=== PATIENT | female | born 1960 | race Caucasian/White ===

== ENCOUNTER 2016-11-29 10:03 | Inpatient (IN) | payer OTHER ==
[2016-11-28 14:57] VITALS: BMI 28.4
[2016-11-29] VITALS (20 sets, daily range): BP systolic 98–183; BP diastolic 58–95; PULSE 84–105; RESP 11–25; Ht 165.1 cm; Wt 91.9 kg
[~2016-11-29] VITALS: Ht 165.1 cm; Wt 91.9 kg
[~2016-11-29 10:03] MED LIST: GLYCOPYRROLATE 1 MG INJ ONE; NEOSTIGMINE 3 MG/3 ML SYRINGE ONE
[2016-11-29] MEDS ORDERED: GABA-526 PO (10:54)
[2016-11-29] MEDS ORDERED: GABA300C16 PO (10:54)
[2016-11-29] MEDS ORDERED: TRAM-40 PO (10:55)
[2016-11-29] MEDS ORDERED: LISI1TAB6 PO (10:56)
[2016-11-29] MEDS ORDERED: ESTR1TAB13 PO (10:56)
[2016-11-29] MEDS ORDERED: AMIT25TA9 PO (10:56)
[2016-11-29] MEDS ORDERED: ATOR10TA65 PO (10:57)
[2016-11-29] MEDS ORDERED: CYCL5TAB PO (10:58)
[2016-11-29] MEDS ORDERED: SPIR25TA PO (10:59)
[2016-11-29] MEDS ORDERED: OMEP40CA6 PO (10:59)
[2016-11-29] MEDS ORDERED: MIDAZOLAM 1 MG/ML 2 ML INJ ONE (12:22)
[2016-11-29] MEDS ORDERED: GELATIN SIZE 100 SPONGE ONE (12:30)
[2016-11-29] MEDS ORDERED: THROMBIN 5000 UNIT VIAL ONE (12:31)
[2016-11-29] MEDS ORDERED: LIDOCAINE 0.5%/EPI (MDV) 50 ML INJ ONE (12:31)
--- NOTE | 2016-11-29 12:58 | HPN ---
Date/Time of Note Date/Time of Note DATE: 11/29/16 TIME: 12:57 Interval H&P Admission Note Pt. seen H&P reviewed: No system changes SCOUT HEIN PA-C Nov 29, 2016 12:58
[2016-11-29] MEDS ORDERED: MEPERIDINE 25 MG INJ IV PRN (13:00)
[2016-11-29] MEDS ORDERED: LABETALOL HCL 20MG INJ IV PRN (13:00)
[2016-11-29] MEDS ORDERED: DIPHENHYDRAMINE 50 MG INJ IV PRN (13:00)
[2016-11-29] MEDS ORDERED: hydrALAzine 20 MG INJ IV PRN (13:00)
[2016-11-29] MEDS ORDERED: ONDANSETRON 4 MG INJ IV PRN (13:00)
--- NOTE | 2016-11-29 13:01 | HPN ---
Date/Time of Note Date/Time of Note DATE: 11/29/16 TIME: 13:01 Interval H&P Admission Note Pt. seen H&P reviewed: No system changes FLORA GASPRA MD Nov 29, 2016 13:01
[2016-11-29] MEDS ORDERED: PHENYLephrine (100 MCG/ML) 5ML SYG ONE (13:21)
[2016-11-29] MEDS ORDERED: DEXAMETHASONE 4 MG/ML 1 ML INJ ONE (13:29)
--- NOTE | 2016-11-29 13:39 | PREOPHP ---
DATE OF ADMISSION: 11/29/2016 HISTORY OF PRESENT ILLNESS: The patient is approximately 55-year-old female with a history of high blood pressure, CKD stage II, came into the office initially for evaluation of neck pain for approxi mately 1 year with numbness in her hands. She was diagnosed with cervical spondylosis with disk her niation C4-C5, C5-C6. Conservative management was initiated in the form of pain management, which t he patient has failed epidural injections. The patient has failed her condition is getting worse. The patient was having more pain and wanted something more definite to be done. PAST MEDICAL HISTORY: Hypertension, chronic kidney disease stage II. SURGICAL HISTORY: Right nephrectomy. MEDICATIONS: Please refer to medication reconciliation. ALLERGIES: CODEINE CAUSES HIVES. SOCIAL HISTORY: Does not drink regularly, but occasionally social drinking. Does not smoke. No dr bautista. FAMILY HISTORY: Unremarkable. REVIEW OF SYSTEMS: Additional 10-point review of systems conducted. Pertinent positive in HPI, oth erwise negative. PHYSICAL EXAMINATION: GENERAL: The patient in bed, awake. NEUROLOGIC: Alert, oriented, follows commands properly. EXTREMITIES: Upper extremity examination weakness in both shoulders, biceps, triceps, wrist extensor s and flexors. Muscle strength is 4/5 on both sides, appeared lower extremity examination is unrema rkable. She is able to move both lower extremities equally. IMAGING: MRI dated 10/30/2016 shows cervical spondylosis C3-C4, C4-C5, C5-C6 with disk herniation C 4-C5, C5-C6 with early cord compression. Recommendation at this point. The patient has failed cons ervative management, has failed outpatient therapy. Her condition is getting worse. The patient is developing weakness in upper extremities and numbness. Patient has evidence of radiculopathy, has evidence of myelopathy. Unfortunately, at this point, the only option left is a cervical diskectomy with partial vertebrectomy, C4, C5, C6 with interbody fusion and plating. The operation was discus sed with the patient in great detail and complications were discussed including bleeding, infection, permanent neurological damage and infarct. The patient has agreed. Authorization was obtained. T he patient will be admitted to the hospital after the procedure for further care and management. Dictated By: SCOUT ESPINOSA for FLORA SHAW/OWEN Conf#: [id number] [facility]#: [id number]
[2016-11-29] MEDS: CEFAZOLIN 1 GM/50 ML (PMX) 50 ML IVPB SCH ×2 (14:00→21:18)
[2016-11-29] MEDS ORDERED: POLYMYXIN/BACITRACIN 1L IRRIG ONE (14:05)
[2016-11-29] MEDS ORDERED: hydrALAzine 20 MG INJ ONE (14:24)
[2016-11-29] MEDS ORDERED: ROCURONIUM 50 MG INJ ONE (15:06)
[2016-11-29] MEDS ORDERED: LIDOCAINE 2% (SDV) 5 ML INJ ONE (15:06)
[2016-11-29] MEDS ORDERED: ONDANSETRON 4 MG INJ ONE (15:06)
[2016-11-29] MEDS ORDERED: PROPOFOL 20 ML ONE (15:06)
[2016-11-29] MEDS ORDERED: SUCCINYLCHOLINE CHLORIDE 100 MG/5 ML SYG IV ONE (15:06)
[2016-11-29] MEDS ORDERED: CEFAZOLIN 1 GM INJ ONE (15:14)
[2016-11-29] MEDS ORDERED: ALBUTEROL 0.083% (NEB) 2.5 MG/3 ML AMP ONE (15:32)
[2016-11-29] MEDS ORDERED: FUROSEMIDE 20 MG INJ ONE (15:44)
--- NOTE | 2016-11-29 15:49 | RADRPT ---
PROCEDURE: Intraoperative fluoroscopy. CLINICAL INDICATION: Intraoperative fluoroscopy during C4-5 and C5-6 fusion. TECHNIQUE: 7 spot intraoperative fluoroscopic images were provided. The images were reviewed on a high-resolution PACS workstation. COMPARISON: None available FINDINGS: Multiple spot intraoperative fluoroscopic views were provided during C4-5 and C5-6 fusion. The imag es demonstrate initial metallic probe at the C4-5 level, with subsequent placement of anterior verte bral body screws and anterior spinal fusion plate. The total fluoroscopy time was 17.1-seconds. IMPRESSION: 1. Multiple spot intraoperative fluoroscopic views during anterior cervical discectomy and fusion a t C4-5 and C5-6 were provided. 2. Please see operative report of the same day for further information. RPTAT: HGAS .Vlad Estrada MD, Date Time Electronically viewed and signed by .Vlad Estrada MD, on 11/29/2016 15:49 .S/
[2016-11-29] MEDS: FENTAnyl 50 MCG/ML VIAL IV PRN ×5 (16:18→17:09)
[2016-11-29] MEDS: DEXAMETHASONE 4 MG/ML 1 ML INJ IV SCH ×2 (19:56→23:38)
[2016-11-29] MEDS: ONDANSETRON 4 MG INJ IV PRN (19:56)
[2016-11-29] MEDS: DEXTROSE 5%-LR 1,000 ML IV SCH (19:56)
[2016-11-29] MEDS: HYDROmorphONE 1 MG/ML SYG IV PRN ×2 (19:57→23:38)
[2016-11-29] MEDS ORDERED: traMADol 50 MG TAB PO PRN (21:30)
[2016-11-29] MEDS: AMITRIPTYLINE 25 MG TAB PO SCH (22:30)
[2016-11-29] MEDS: ATORVASTATIN 10 MG TAB PO SCH (22:30)
[2016-11-29] MEDS: GABAPENTIN 300 MG CAP PO SCH (22:30)
[2016-11-30] MEDS: CYCLOBENZAPRINE 10 MG TAB PO PRN (00:44)
[2016-11-30] MEDS: ONDANSETRON 4 MG INJ IV PRN (03:13)
[2016-11-30] MEDS: HYDROmorphONE 2 MG/ML SYG IV PRN ×6 (03:14→19:49)
[2016-11-30 05:00] VITALS: BP 104/59; PULSE 107; RESP 18
[2016-11-30] MEDS: CEFAZOLIN 1 GM/50 ML (PMX) 50 ML IVPB SCH ×2 (06:02→14:02)
[2016-11-30] MEDS: DEXAMETHASONE 4 MG/ML 1 ML INJ IV SCH ×3 (06:02→21:50)
[2016-11-30] MEDS: PANTOPRAZOLE (EC) 40 MG TAB PO SCH (06:02)
[2016-11-30] MEDS: DEXTROSE 5%-LR 1,000 ML IV SCH ×2 (06:02→18:10)
[2016-11-30] MEDS: M PROGEST ACET XX SCH ×2 (08:00→16:00)
[2016-11-30] MEDS: ESTROGEN CON XX SCH ×2 (08:00→16:00)
[2016-11-30 08:36] VITALS: BP 99/57; RESP 18
[2016-11-30] MEDS: SPIRONOLACTONE 25 MG TAB PO SCH (09:00)
[2016-11-30] MEDS: LISINOPRIL 20 MG TAB PO SCH (09:00)
[2016-11-30] MEDS: HYDROCHLOROTHIAZIDE 12.5 MG CAP PO SCH (09:00)
[2016-11-30] MEDS: GABAPENTIN 300 MG CAP PO SCH ×3 (09:08→21:50)
--- NOTE | 2016-11-30 14:09 | HP ---
DATE OF ADMISSION: 11/29/2016 HISTORY OF PRESENT ILLNESS: The patient is a 55-year-old female with a past medical history positiv e for hypertension, chronic kidney disease stage II and fibromyalgia, obesity. The patient was diag nosed with cervical spondylosis with disk herniation at C4-C5 and C5-C6. The patient underwent cons ervative management for pain and epidural injection with no significant improvement. The patient's condition got worse and patient was evaluated by Dr. Macias. The patient underwent MRI which showed cervical spondylosis with disk herniation and early cord compression. The patient was brought to [facility] and underwent cervical diskectomy with partial vertebrectomy, C4, C5, C6 with interbody fusion and plating. Postoperatively, the patient experienced some significant pain and was admitted for further evaluation and care. The patient currently denies any fever, denies chills, denies manuel rrhea, nausea and vomiting. PAST MEDICAL HISTORY: Per HPI. PAST SURGICAL HISTORY: Status post right nephrectomy. FAMILY HISTORY: Positive for hypertension and cardiovascular disease in patient's father, diabetes mellitus type 2 in patient's mother, kidney cancer in patient's maternal aunt. SOCIAL HISTORY: Patient lives at home with her family, patient denies any tobacco use, denies any i llicit drug use. Patient drinks alcohol occasionally. ALLERGIES: PATIENT IS ALLERGIC TO CODEINE. HOME MEDICATIONS: 1. Amitriptyline. 2. Atorvastatin. 3. Cyclobenzaprine. 4. Prempro. 5. Gabapentin. 6. Lisinopril. 7. Hydrochlorothiazide. 8. Omeprazole. 9. Aldactone. 10. Ultram. REVIEW OF SYSTEMS: A 12-point review of systems is negative unless what mentioned in the HPI. PHYSICAL ASSESSMENT: GENERAL: Well-developed, obese female currently is awake, alert. VITAL SIGNS: Temperature is 98.0, pulse is 94, blood pressure is 110/58, respiratory rate 18, oxyge n saturation 97% on 2 liters nasal cannula. HEENT: Head is atraumatic, normocephalic. Pupils equal, round, reactive to light and accommodation . Oral mucosa is pink and moist. NECK: Status post-surgery with hard cervical collar on. Surgical incision with dry, clean and inta ct dressing. CHEST: Lungs clear bilaterally. There are no rhonchi, wheezes, rales noted. CARDIOVASCULAR: Normal S1, S2. No murmurs, gallops, clicks, rubs noted. ABDOMEN: Protuberant, soft, nondistended, nontender. Bowel sounds present. There is no guarding o r rebound tenderness. EXTREMITIES: Mild edema 1+. There is no clubbing, no cyanosis. Pulses equal bilaterally 2+. SKIN: There is no rash, petechiae noted. NEUROLOGIC: Patient is awake, alert and oriented x4. No focal deficits noted. Motor strength is 5 /5 in all extremities. LABORATORY DATA: On admission prior to surgery CBC, white blood cells 5.7, hemoglobin 13.2, hematoc rit 39.9, platelets 239. BMP: Sodium is 138, potassium 4.6, chloride 103, carbon dioxide 27, calci um is 10.2, glucose 94, BUN is 18, creatinine 0.8, PTT 30, INR is 1.0. PT is 10.5. ASSESSMENT AND PLAN: 1. Cervical spondylosis with disk herniation and early cord compression, status post diskectomy wit h partial vertebrectomy at C4, C5, C6 with interbody fusion and plating. 2. Hypertension. 3. Chronic kidney disease stage II. 4. Obesity. 5. Fibromyalgia. I am going to admit patient to medical/surgical floor. Continue tramadol for pain. Patient is cont inued on Decadron. Patient also status post postoperative antibiotics. Continue cervical collar, f ollow up surgical recommendation. Continue Zofran p.r.n. for nausea. Continue cefazolin. Will res ume patient's home medication of Neurontin, lisinopril and Aldactone. Continue Flexeril p.r.n. for muscle spasms, CBC and BMP tomorrow. Continue physical therapy. Further recommendations based on c linical course. Plan of care discussed with Dr. De Dios. Dictated By: BIGG B[employer]KE [employer] DIRECTOR for DARIUS DE DIOS MD SR/NTS Conf#: [id number] DID#: [id number]
--- NOTE | 2016-11-30 15:23 | CONS ---
Date/Time of Note Date/Time of Note DATE: 11/30/16 TIME: 15:21 Assessment/Plan Assessment/Plan Additional Assessment/Plan seen/examined awake/alert/follows/moves all/sensation intact cervical 4-5-6 partial vertebrectomy with fusion doing better start tapering decadron mri pending cont pt/ot cervical dressing dced due to too much dressing causing additional pressure on pts neck. Consultation Date/Type/Reason Admit Date/Time Nov 29, 2016 at 10:03 Initial Consult Date Exam/Review of Systems Vital Signs Vitals Vital Signs Date Time Temp Pulse Resp B/P Pulse Ox O2 Delivery O2 Flow Rate FiO2 11/30/16 08:36 98.6 108 18 99/57 94 11/30/16 05:00 Nasal Cannula 2.0 Intake and Output 11/29/16 11/29/16 11/30/16 15:00 23:00 07:00 Intake Total 1300 ml 2025 ml Output Total 2350 ml 1600 ml Balance -1050 ml 425 ml Medications Medications Current Medications Ondansetron HCl 4 mg 4 mg Q4H PRN IV NAUSEA AND/OR VOMITING Last administered on 11/30/16 03:13; Admin Dose 4 MG; Start 11/29/16 at 14:00 Dextrose/Lactated Ringer's (D5-Lr) 1,000 ml @ 75 mls/hr [id number] IV Last administered on 11/30/16 06:02; Admin Dose 75 MLS/HR; Start 11/29/16 at 15:30 Dexamethasone (Decadron) 4 mg Q6 IV Last administered on 11/30/16 12:26; Admin Dose 4 MG; Start 11/29/16 at 18:00 Amitriptyline HCl (Elavil) 25 mg QHS PO ; Start 11/29/16 at 22:30 Atorvastatin Calcium (Lipitor) 10 mg QHS PO ; Start 11/29/16 at 22:30 Cyclobenzaprine HCl (Flexeril) 10 mg QHS PRN PO MUSCLE SPASMS Last administered on 11/30/16 00:44; Admin Dose 10 MG; Start 11/29/16 at 21:30 Gabapentin (Neurontin) 300 mg PO Last administered on 11/30/16 14:02; Admin Dose 300 MG; Start 11/30/16 at 09:00 Gabapentin (Neurontin) 600 mg QHS PO ; Start 11/29/16 at 22:30 Spironolactone (Aldactone) 12.5 mg DAILY PO ; Start 11/30/16 at 09:00 Tramadol HCl (Ultram) 50 mg BID PRN PO PAIN; Start 11/29/16 at 21:30 Miscellaneous Information 1 each DAILY PO ; Start 11/30/16 at 09:00; Status UNV Lisinopril (Zestril) 20 mg DAILY PO ; Start 11/30/16 at 09:00 Pantoprazole (Protonix Tab) 40 mg DAILY@06 PO Last administered on 11/30/16 06 :02; Admin Dose 40 MG; Start 11/30/16 at 06:00 Hydrochlorothiazide (Hydrochlorothiazide) 12.5 mg DAILY PO ; Start 11/30/16 at 09:00 Hydromorphone HCl (Dilaudid) 1.5 mg Q3H PRN IV PAIN Last administered on 12:26; Admin Dose 1.5 MG; Start 11/30/16 at 03:10 Miscellaneous Information (*Order Clarification Bulletin) Estrogen,Con/ M- Progest Acet (Prempro ... Q8H XX Last administered on 11/30/16 08:00; Admin Dose 1 EA; Start 11/30/16 at 08:00 Simethicone (Mylicon) 80 mg TID PRN GTB DISTENSION/GAS/BLOATING Last administered on 11/30/16 13:26; Admin Dose 80 MG; Start 11/30/16 at 13:30 Diphenhydramine HCl (Benadryl) 50 mg Q6H PRN PO ITCHING; Start 11/30/16 at 13: 30 SCOUT HEIN PA-C Nov 30, 2016 15:23
[2016-11-30 20:01] VITALS: BP 116/62; PULSE 98; RESP 17
[2016-11-30] MEDS: AMITRIPTYLINE 25 MG TAB PO SCH (21:50)
[2016-11-30] MEDS: ATORVASTATIN 10 MG TAB PO SCH (21:50)
--- NOTE | 2016-11-30 22:02 | RADRPT ---
PROCEDURE: MRI Cervical Spine without contrast. CLINICAL INDICATION: 55-year-old female with cervical stenosis/cord compression. TECHNIQUE: An MRI of the cervical spine was performed without contrast utilizing multiple sequence s in the sagittal and axial planes. Images reviewed on a high-resolution PACS system.. COMPARISON: Intraoperative exam 11/29/2016 FINDINGS: There are postoperative changes from anterior cervical discectomy and fusion at C4-5 and C5-6 with p aired anterior vertebral body screws in the C4, C5 and C6 vertebral bodies and associated anterior s chadwick fusion plate. There are disc-spacers in place, which are not well evaluated due to susceptibi lity artifact. There are postoperative changes in the prevertebral soft tissues. 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 The intervertebral disc spaces are normal in signal and height. The craniocervical and cerv ical medullary junctions are unremarkable. The cervical cord is normal in caliber and signal intensi ty. The paravertebral soft tissues are unremarkable. Occiput-C2: The anatomic relationships are normal without canal stenosis. C2-3: The posterior margin of the disc, thecal sac and neural foramina are normal in appearance. C3-4: There is a 3.6 mm posterior disc protrusion with mild indentation on the ventral thecal sac. The thecal sac measures 7.7 mm midline AP diameter. There is mild bilateral facet spondylosis. The neural foramina are patent. C4-5: No residual disc material is seen. The thecal sac is patent measuring 9 mm midline AP diamete r. There is mild bilateral facet spondylosis. There is mild bilateral neural foraminal narrowing. C5-6: No residual disc material is seen. The thecal sac is patent measuring 8.[address]. There is mild bilateral facet hypertrophy and uncovertebral joint spondylosis. There is mild to moderate bilateral neural foraminal narrowing. C6-7: There is a 1-2 mm posterior disc/osteophyte complex. The thecal sac and neural foramina are p atent. There is mild bilateral facet spondylosis. C7-T1: The posterior margin of the disc, thecal sac and neural foramina are normal in appearance. IMPRESSION: 1. Postoperative changes from anterior cervical discectomy and fusion at C4-5 and C5-6 with intact surgical hardware. There is no significant residual stenosis of the cervical spinal canal. 2. The cervical cord is normal in signal and caliber. No definite residual myelopathic changes are seen. 3. 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 Number 4. 3.6 mm posterior central disc protrusion at C3-4 with mild to moderate narrowing of the cervical thecal sac. The neural foramina are patent. RPTAT: HGAS .Vlad Estrada MD, MD Date Time Electronically viewed and signed by .Vlad Estrada MD, on 11/30/2016 22:01 .S/
[2016-12-01] MEDS: HYDROmorphONE 2 MG/ML SYG IV PRN ×6 (00:42→23:36)
[2016-12-01] MEDS: DEXTROSE 5%-LR 1,000 ML IV SCH ×2 (00:42→14:17)
[2016-12-01 05:50] LABS: BASOPHILS % 0.3 % (0.0-2.0); HEMATOCRIT 34.2 % (37.0-47.0); HEMOGLOBIN 11.6 g/dl (12.0-16.0); LYMPHOCYTES # 0.6 10^3/ul (0.8-2.9); MEAN CORPUSCULAR HEMOGLOBIN 32.8 pg (29.0-33.0); MEAN CORPUSCULAR HGB CONC 33.8 g/dl (32.0-37.0); MEAN CORPUSCULAR VOLUME 97.1 fl (82.0-101.0); MEAN PLATELET VOLUME 8.9 fl (7.4-10.4); MONOCYTE # 0.6 10^3/ul (0.3-0.9); NEUTROPHIL # 13.9 10^3/ul (1.6-7.5); NEUTROPHILS % 91.7 % (39.0-77.0); PLATELET COUNT 211 10^3/UL (140-440); RED BLOOD COUNT 3.52 10^6/ul (4.20-5.40); RED CELL DISTRIBUTION WIDTH 14.9 % (11.5-14.5); UNCORRECTED WBC 15.2 10^3/ul (4.8-10.8); WHITE BLOOD COUNT 15.2 10^3/ul (4.8-10.8)
[2016-12-01] MEDS: PANTOPRAZOLE (EC) 40 MG TAB PO SCH (06:03)
[2016-12-01 06:21] LABS: CONDITION 1; LH ANALYZER COMMENTS 1
[2016-12-01 06:38] LABS: CREATININE 0.79 mg/dl (0.44-1.00)
[2016-12-01 06:39] LABS: CALCIUM 8.8 mg/dl (8.4-10.2)
[2016-12-01 07:45] VITALS: BP 115/58; RESP 16
[2016-12-01] MEDS: ESTROGEN CON XX SCH ×4 (08:00→23:38)
[2016-12-01] MEDS: M PROGEST ACET XX SCH ×4 (08:00→23:38)
[2016-12-01] MEDS: DEXAMETHASONE 4 MG/ML 1 ML INJ IV SCH ×2 (08:46→21:11)
[2016-12-01] MEDS: HYDROCHLOROTHIAZIDE 12.5 MG CAP PO SCH (09:00)
[2016-12-01] MEDS: LISINOPRIL 20 MG TAB PO SCH (09:00)
[2016-12-01] MEDS: SPIRONOLACTONE 25 MG TAB PO SCH (09:00)
[2016-12-01] MEDS: DIPHENHYDRAMINE 50 MG CAP PO PRN ×2 (09:14→21:58)
--- NOTE | 2016-12-01 10:08 | PN ---
Date/Time of Note Date/Time of Note DATE: 12/01/16 TIME: 10:07 Assessment/Plan VTE Prophylaxis VTE Prophylaxis Intervention: other Lines/Catheters IV Catheter Type (from Nrsg): Peripheral IV Assessment/Plan Chief Complaint/Hosp Course 1) spinal spondylosis - s/p surgery - monitor Problems: Subjective 24 Hr Interval Summary Free Text/Dictation Patient complain of neck pain and sore throat Exam/Review of Systems Vital Signs Vitals Vital Signs Date Time Temp Pulse Resp B/P Pulse Ox O2 Delivery O2 Flow Rate FiO2 12/01/16 07:45 97.8 104 16 115/58 96 11/30/16 20:01 Nasal Cannula 2.0 Intake and Output 11/30/16 11/30/16 12/01/16 15:00 23:00 07:00 Intake Total 50 ml 1785 ml 1130 ml Balance 50 ml 1785 ml 1130 ml Exam Constitutional: well developed Head: atraumatic, normocephalic Neck: supple Respiratory: diminished breath sounds Cardiovascular: regular rate and rhythm Gastrointestinal: non-tender, soft Results Result Diagram: 12/01/16 0420 12/01/16 0420 Results 24 hrs Laboratory Tests Test 12/01/16 04:20 Anion Gap 15 Basophils # 0.0 Basophils % 0.3 Blood Morphology Comment Blood Urea Nitrogen 17 Calcium Level 8.8 Carbon Dioxide Level 28 Chloride Level 103 Creatinine 0.79 Eosinophils # 0.0 Eosinophils % 0.0 Glucose Level 151 Hematocrit 34.2 L Hemoglobin 11.6 L Lymphocytes # 0.6 L Lymphocytes % 4.0 L Mean Corpuscular Hemoglobin 32.8 Mean Corpuscular Hemoglobin Concent 33.8 Mean Corpuscular Volume 97.1 Mean Platelet Volume 8.9 Monocytes # 0.6 Monocytes % 4.0 Neutrophils # 13.9 H Neutrophils % 91.7 H Nucleated Red Blood Cells # 0.0 Nucleated Red Blood Cells % 0.0 Platelet Count 211 Potassium Level 5.0 Red Blood Count 3.52 L Red Cell Distribution Width 14.9 H Sodium Level 141 White Blood Count 15.2 H Medications Medications Current Medications Ondansetron HCl 4 mg 4 mg Q4H PRN IV NAUSEA AND/OR VOMITING Last administered on 11/30/16t 03:13; Admin Dose 4 MG; Start 11/29/16 at 14:00 Dextrose/Lactated Ringer's (D5-Lr) 1,000 ml @ 75 mls/hr [id number] IV Last administered on 12/01/16 00:42; Admin Dose 75 MLS/HR; Start 11/29/16 at 15:30 Amitriptyline HCl (Elavil) 25 mg QHS PO Last administered on 11/30/16 21:50; Admin Dose 25 MG; Start 11/29/16 at 22:30 Atorvastatin Calcium (Lipitor) 10 mg QHS PO Last administered on 11/30/16 21: 50; Admin Dose 10 MG; Start 11/29/16 at 22:30 Cyclobenzaprine HCl (Flexeril) 10 mg QHS PRN PO MUSCLE SPASMS Last administered on 11/30/16 00:44; Admin Dose 10 MG; Start 11/29/16 at 21:30 Gabapentin (Neurontin) 300 mg 0914 PO Last administered on 11/30/16 14:02; Admin Dose 300 MG; Start 11/30/16 at 09:00 Gabapentin (Neurontin) 600 mg QHS PO Last administered on 11/30/16 21:50; Admin Dose 600 MG; Start 11/29/16 at 22:30 Spironolactone (Aldactone) 12.5 mg DAILY PO ; Start 11/30/16 at 09:00 Tramadol HCl (Ultram) 50 mg BID PRN PO PAIN Last administered on 12/01/16 09: 07; Admin Dose 50 MG; Start 11/29/16 at 21:30 Miscellaneous Information 1 each DAILY PO ; Start 11/30/16 at 09:00; Status UNV Lisinopril (Zestril) 20 mg DAILY PO ; Start 11/30/16 at 09:00 Pantoprazole (Protonix Tab) 40 mg DAILY@06 PO Last administered on 12/01/16 06 :03; Admin Dose 40 MG; Start 11/30/16 at 06:00 Hydrochlorothiazide (Hydrochlorothiazide) 12.5 mg DAILY PO ; Start 11/30/16 at 09:00 Hydromorphone HCl (Dilaudid) 1.5 mg Q3H PRN IV PAIN Last administered on 06:06; Admin Dose 1.5 MG; Start 11/30/16 at 03:10 Miscellaneous Information (*Order Clarification Bulletin) Estrogen,Con/ M- Progest Acet (Prempro ... Q8H XX Last administered on 11/30/16 08:00; Admin Dose 1 EA; Start 11/30/16 at 08:00 Simethicone (Mylicon) 80 mg TID PRN GTB DISTENSION/GAS/BLOATING Last administered on 11/30/16 13:26; Admin Dose 80 MG; Start 11/30/16 at 13:30 Diphenhydramine HCl (Benadryl) 50 mg Q6H PRN PO ITCHING Last administered on 09:14; Admin Dose 50 MG; Start 11/30/16 at 13:30 Dexamethasone (Decadron) 4 mg Q12 IV Last administered on 12/01/16 08:46; Admin Dose 4 MG; Start 11/30/16 at 21:00 SERGIO MARQUES Dec 01, 2016 10:08
[2016-12-01] MEDS: CEPASTAT LOZENGE MT PRN ×3 (10:22→21:12)
[2016-12-01] MEDS: GABAPENTIN 300 MG CAP PO SCH ×3 (10:22→21:12)
--- NOTE | 2016-12-01 11:07 | CONS ---
Date/Time of Note Date/Time of Note DATE: 12/01/16 TIME: 11:04 Assessment/Plan Assessment/Plan Additional Assessment/Plan seen/examined awake/alert/follows/moves all/sensation intact pt feeling better cont pt/ot mri looks good Consultation Date/Type/Reason Admit Date/Time Nov 29, 2016 at 10:03 Exam/Review of Systems Vital Signs Vitals Vital Signs Date Time Temp Pulse Resp B/P Pulse Ox O2 Delivery O2 Flow Rate FiO2 12/01/16 07:45 97.8 104 16 115/58 96 11/30/16 20:01 Nasal Cannula 2.0 Intake and Output 11/30/16 11/30/16 12/01/16 15:00 23:00 07:00 Intake Total 50 ml 1785 ml 1130 ml Balance 50 ml 1785 ml 1130 ml Results Result Diagram: 12/01/16 0420 12/01/16 0420 Results 24 hrs Laboratory Tests Test 12/01/16 04:20 Anion Gap 15 Basophils # 0.0 Basophils % 0.3 Blood Morphology Comment Blood Urea Nitrogen 17 Calcium Level 8.8 Carbon Dioxide Level 28 Chloride Level 103 Creatinine 0.79 Eosinophils # 0.0 Eosinophils % 0.0 Glucose Level 151 Hematocrit 34.2 L Hemoglobin 11.6 L Lymphocytes # 0.6 L Lymphocytes % 4.0 L Mean Corpuscular Hemoglobin 32.8 Mean Corpuscular Hemoglobin Concent 33.8 Mean Corpuscular Volume 97.1 Mean Platelet Volume 8.9 Monocytes # 0.6 Monocytes % 4.0 Neutrophils # 13.9 H Neutrophils % 91.7 H Nucleated Red Blood Cells # 0.0 Nucleated Red Blood Cells % 0.0 Platelet Count 211 Potassium Level 5.0 Red Blood Count 3.52 L Red Cell Distribution Width 14.9 H Sodium Level 141 White Blood Count 15.2 H Medications Medications Current Medications Ondansetron HCl 4 mg 4 mg Q4H PRN IV NAUSEA AND/OR VOMITING Last administered on 11/30/16 03:13; Admin Dose 4 MG; Start 11/29/16 at 14:00 Dextrose/Lactated Ringer's (D5-Lr) 1,000 ml @ 75 mls/hr [id number] IV Last administered on 12/01/16 00:42; Admin Dose 75 MLS/HR; Start 11/29/16 at 15:30 Amitriptyline HCl (Elavil) 25 mg QHS PO Last administered on 11/30/16 21:50; Admin Dose 25 MG; Start 11/29/16 at 22:30 Atorvastatin Calcium (Lipitor) 10 mg QHS PO Last administered on 11/30/16 21: 50; Admin Dose 10 MG; Start 11/29/16 at 22:30 Cyclobenzaprine HCl (Flexeril) 10 mg QHS PRN PO MUSCLE SPASMS Last administered on 11/30/16 00:44; Admin Dose 10 MG; Start 11/29/16 at 21:30 Gabapentin (Neurontin) 300 mg 09,14 PO Last administered on 12/01/16 10:22; Admin Dose 300 MG; Start 11/30/16 at 09:00 Gabapentin (Neurontin) 600 mg QHS PO Last administered on 11/30/16 21:50; Admin Dose 600 MG; Start 11/29/16 at 22:30 Spironolactone (Aldactone) 12.5 mg DAILY PO ; Start 11/30/16 at 09:00 Tramadol HCl (Ultram) 50 mg BID PRN PO PAIN Last administered on 12/01/16 09: 07; Admin Dose 50 MG; Start 11/29/16 at 21:30 Miscellaneous Information 1 each DAILY PO ; Start 11/30/16 at 09:00; Status UNV Lisinopril (Zestril) 20 mg DAILY PO ; Start 11/30/16 at 09:00 Pantoprazole (Protonix Tab) 40 mg DAILY@06 PO Last administered on 12/01/16 06 :03; Admin Dose 40 MG; Start 11/30/16 at 06:00 Hydrochlorothiazide (Hydrochlorothiazide) 12.5 mg DAILY PO ; Start 11/30/16 at 09:00 Hydromorphone HCl (Dilaudid) 1.5 mg Q3H PRN IV PAIN Last administered on 06:06; Admin Dose 1.5 MG; Start 11/30/16 at 03:10 Miscellaneous Information (*Order Clarification Bulletin) Estrogen,Con/ M- Progest Acet (Prempro ... Q8H XX Last administered on 11/30/16 08:00; Admin Dose 1 EA; Start 11/30/16 at 08:00 Simethicone (Mylicon) 80 mg TID PRN GTB DISTENSION/GAS/BLOATING Last administered on 11/30/16 13:26; Admin Dose 80 MG; Start 11/30/16 at 13:30 Diphenhydramine HCl (Benadryl) 50 mg Q6H PRN PO ITCHING Last administered on 09:14; Admin Dose 50 MG; Start 11/30/16 at 13:30 Dexamethasone (Decadron) 4 mg Q12 IV Last administered on 12/01/16 08:46; Admin Dose 4 MG; Start 11/30/16 at 21:00 Phenol (Cepastat Lozenge) 1 lozenge Q1H PRN MT sore throat Last administered on 12/01/16 10:22; Admin Dose 1 LOZENGE; Start 12/01/16 at 10:30 SCOUT HEIN PA-C Dec 01, 2016 11:07
[2016-12-01 12:00] VITALS: BP 103/56; PULSE 88; RESP 17
[2016-12-01] MEDS: ATORVASTATIN 10 MG TAB PO SCH (21:12)
[2016-12-01] MEDS: CYCLOBENZAPRINE 10 MG TAB PO PRN (21:12)
[2016-12-01] MEDS: AMITRIPTYLINE 25 MG TAB PO SCH (21:12)
[2016-12-01 21:45] VITALS: BP 126/67; RESP 20
[2016-12-02] MEDS: PANTOPRAZOLE (EC) 40 MG TAB PO SCH (06:25)
[2016-12-02] MEDS: HYDROmorphONE 2 MG/ML SYG IV PRN ×5 (06:29→22:36)
[2016-12-02] MEDS: DEXTROSE 5%-LR 1,000 ML IV SCH ×2 (07:18→23:30)
[2016-12-02] MEDS: ESTROGEN CON XX SCH ×3 (08:00→23:48)
[2016-12-02] MEDS: M PROGEST ACET XX SCH ×3 (08:00→23:48)
[2016-12-02 08:08] VITALS: BP 142/78; RESP 20
[2016-12-02] MEDS: SPIRONOLACTONE 25 MG TAB PO SCH (09:07)
[2016-12-02] MEDS: LISINOPRIL 20 MG TAB PO SCH (09:08)
[2016-12-02] MEDS: HYDROCHLOROTHIAZIDE 12.5 MG CAP PO SCH (09:08)
[2016-12-02] MEDS: DEXAMETHASONE 4 MG/ML 1 ML INJ IV SCH (09:08)
[2016-12-02] MEDS: GABAPENTIN 300 MG CAP PO SCH ×3 (09:10→20:54)
[2016-12-02] MEDS: CEPASTAT LOZENGE MT PRN (09:17)
--- NOTE | 2016-12-02 11:43 | PN ---
Date/Time of Note Date/Time of Note DATE: 12/02/16 TIME: 11:42 Assessment/Plan VTE Prophylaxis VTE Prophylaxis Intervention: other Lines/Catheters IV Catheter Type (from Nrs): Peripheral IV Urinary Cath still in place: No Assessment/Plan Chief Complaint/Hosp Course 1) spinal spondylosis - s/p surgery - monitor Problems: Subjective 24 Hr Interval Summary Free Text/Dictation Patient complain of neck pain, improved from yesterday Exam/Review of Systems Vital Signs Vitals Vital Signs Date Time Temp Pulse Resp B/P Pulse Ox O2 Delivery O2 Flow Rate FiO2 12/02/16 08:08 98.4 93 20 142/78 94 12/01/16 12:00 Room Air 11/30/16 20:01 2.0 Intake and Output 12/01/16 12/01/16 12/02/16 15:00 23:00 07:00 Intake Total 700 ml 1700 ml 400 ml Balance 700 ml 1700 ml 400 ml Exam Constitutional: well developed Head: atraumatic, normocephalic Neck: supple Respiratory: clear to auscultation Cardiovascular: regular rate and rhythm Gastrointestinal: non-tender, soft Results Result Diagram: 12/01/16 04212/01/16 0420 Medications Medications Current Medications Ondansetron HCl 4 mg 4 mg Q4H PRN IV NAUSEA AND/OR VOMITING Last administered on 11/30/16 03:13; Admin Dose 4 MG; Start 11/29/16 at 14:00 Dextrose/Lactated Ringer's (D5-Lr) 1,000 ml @ 75 mls/hr [id number] IV Last administered on 12/02/16 07:18; Admin Dose 75 MLS/HR; Start 11/29/16 at 15:30 Amitriptyline HCl (Elavil) 25 mg QHS PO Last administered on 12/01/16 21:12; Admin Dose 25 MG; Start 11/29/16 at 22:30 Atorvastatin Calcium (Lipitor) 10 mg QHS PO Last administered on 12/01/16 21: 12; Admin Dose 10 MG; Start 11/29/16 at 22:30 Cyclobenzaprine HCl (Flexeril) 10 mg QHS PRN PO MUSCLE SPASMS Last administered on 12/01/16 21:12; Admin Dose 10 MG; Start 11/29/16 at 21:30 Gabapentin (Neurontin) 300 mg 09,14 PO Last administered on 12/02/16 09:10; Admin Dose 300 MG; Start 11/30/16 at 09:00 Gabapentin (Neurontin) 600 mg QHS PO Last administered on 12/01/16 21:12; Admin Dose 600 MG; Start 11/29/16 at 22:30 Spironolactone (Aldactone) 12.5 mg DAILY PO Last administered on 12/02/16 09: 07; Admin Dose 12.5 MG; Start 11/30/16 at 09:00 Miscellaneous Information 1 each DAILY PO ; Start 11/30/16 at 09:00; Status UNV Lisinopril (Zestril) 20 mg DAILY PO Last administered on 12/02/16 09:08; Admin Dose 20 MG; Start 11/30/16 at 09:00 Pantoprazole (Protonix Tab) 40 mg DAILY@06 PO Last administered on 12/02/16 06 :25; Admin Dose 40 MG; Start 11/30/16 at 06:00 Hydrochlorothiazide (Hydrochlorothiazide) 12.5 mg DAILY PO Last administered on 12/02/16 09:08; Admin Dose 12.5 MG; Start 11/30/16 at 09:00 Hydromorphone HCl (Dilaudid) 1.5 mg Q3H PRN IV PAIN Last administered on 09:17; Admin Dose 1.5 MG; Start 11/30/16 at 03:10 Miscellaneous Information (*Order Clarification Bulletin) Estrogen,Con/ M- Progest Acet (Prempro ... Q8H XX Last administered on 11/30/16 08:00; Admin Dose 1 EA; Start 11/30/16 at 08:00 Simethicone (Mylicon) 80 mg TID PRN GTB DISTENSION/GAS/BLOATING Last administered on 11/30/16 13:26; Admin Dose 80 MG; Start 11/30/16 at 13:30 Diphenhydramine HCl (Benadryl) 50 mg Q6H PRN PO ITCHING Last administered on 21:58; Admin Dose 50 MG; Start 11/30/16 at 13:30 Dexamethasone (Decadron) 4 mg Q12 IV Last administered on 12/02/16 09:08; Admin Dose 4 MG; Start 11/30/16 at 21:00 Phenol (Cepastat Lozenge) 1 lozenge Q1H PRN MT sore throat Last administered on 12/02/16 09:17; Admin Dose 1 LOZENGE; Start 12/01/16 at 10:30 Tramadol HCl (Ultram) 50 mg Q8H PRN PO PAIN; Start 12/01/16 at 17:00 SERGIO MARQUES Dec 02, 2016 11:43
--- NOTE | 2016-12-02 15:11 | CONS ---
Date/Time of Note Date/Time of Note DATE: 12/02/16 TIME: 15:09 Assessment/Plan Assessment/Plan Additional Assessment/Plan seen/examined awake/alert/follows/moves all/sensation intact taper decadron wound looks good cont pt/ot may go home in 24hrs when ambulation is better Consultation Date/Type/Reason Admit Date/Time Nov 29, 2016 at 10:03 Exam/Review of Systems Vital Signs Vitals Vital Signs Date Time Temp Pulse Resp B/P Pulse Ox O2 Delivery O2 Flow Rate FiO2 12/02/16 08:08 98.4 93 20 142/78 94 12/01/16 12:00 Room Air 11/30/16 20:01 2.0 Intake and Output 12/01/16 12/01/16 12/02/16 15:00 23:00 07:00 Intake Total 700 ml 1700 ml 400 ml Balance 700 ml 1700 ml 400 ml Results Result Diagram: 12/01/16 0420 12/01/16 0420 Medications Medications Current Medications Ondansetron HCl 4 mg 4 mg Q4H PRN IV NAUSEA AND/OR VOMITING Last administered on 11/30/16 03:13; Admin Dose 4 MG; Start 11/29/16 at 14:00 Dextrose/Lactated Ringer's (D5-Lr) 1,000 ml @ 75 mls/hr [id number] IV Last administered on 12/02/16 07:18; Admin Dose 75 MLS/HR; Start 11/29/16 at 15:30 Amitriptyline HCl (Elavil) 25 mg QHS PO Last administered on 12/01/16 21:12; Admin Dose 25 MG; Start 11/29/16 at 22:30 Atorvastatin Calcium (Lipitor) 10 mg QHS PO Last administered on 12/01/16 21: 12; Admin Dose 10 MG; Start 11/29/16 at 22:30 Cyclobenzaprine HCl (Flexeril) 10 mg QHS PRN PO MUSCLE SPASMS Last administered on 12/01/16 21:12; Admin Dose 10 MG; Start 11/29/16 at 21:30 Gabapentin (Neurontin) 300 mg PO Last administered on 12/02/16 14:47; Admin Dose 300 MG; Start 11/30/16 at 09:00 Gabapentin (Neurontin) 600 mg QHS PO Last administered on 12/01/16 21:12; Admin Dose 600 MG; Start 11/29/16 at 22:30 Spironolactone (Aldactone) 12.5 mg DAILY PO Last administered on 12/02/16 09: 07; Admin Dose 12.5 MG; Start 11/30/16 at 09:00 Miscellaneous Information 1 each DAILY PO ; Start 11/30/16 at 09:00; Status UNV Lisinopril (Zestril) 20 mg DAILY PO Last administered on 12/02/16 09:08; Admin Dose 20 MG; Start 11/30/16 at 09:00 Pantoprazole (Protonix Tab) 40 mg DAILY@06 PO Last administered on 12/02/16 06 :25; Admin Dose 40 MG; Start 11/30/16 at 06:00 Hydrochlorothiazide (Hydrochlorothiazide) 12.5 mg DAILY PO Last administered on 12/02/16 09:08; Admin Dose 12.5 MG; Start 11/30/16 at 09:00 Hydromorphone HCl (Dilaudid) 1.5 mg Q3H PRN IV PAIN Last administered on 13:30; Admin Dose 1.5 MG; Start 11/30/16 at 03:10 Miscellaneous Information (*Order Clarification Bulletin) Estrogen,Con/ M- Progest Acet (Prempro ... Q8H XX Last administered on 11/30/16 08:00; Admin Dose 1 EA; Start 11/30/16 at 08:00 Simethicone (Mylicon) 80 mg TID PRN GTB DISTENSION/GAS/BLOATING Last administered on 11/30/16 13:26; Admin Dose 80 MG; Start 11/30/16 at 13:30 Diphenhydramine HCl (Benadryl) 50 mg Q6H PRN PO ITCHING Last administered on 21:58; Admin Dose 50 MG; Start 11/30/16 at 13:30 Dexamethasone (Decadron) 4 mg Q12 IV Last administered on 12/02/16 09:08; Admin Dose 4 MG; Start 11/30/16 at 21:00 Phenol (Cepastat Lozenge) 1 lozenge Q1H PRN MT sore throat Last administered on 2/19/17at 09:17; Admin Dose 1 LOZENGE; Start 12/01/16 at 10:30 Tramadol HCl (Ultram) 50 mg Q8H PRN PO PAIN; Start 12/01/16 at 17:00 SCOUT HEIN PA-C Dec 02, 2016 15:11
[2016-12-02] MEDS: DEXAMETHASONE 2 MG TAB PO SCH (15:30)
[2016-12-02] MEDS: POLYETHYLENE GLYCOL 17 GM PACKET PO PRN (17:46)
[2016-12-02 20:23] VITALS: BP 157/76; RESP 20
[2016-12-02] MEDS: ATORVASTATIN 10 MG TAB PO SCH (20:54)
[2016-12-02] MEDS: traMADol 50 MG TAB PO PRN (20:54)
[2016-12-02] MEDS: AMITRIPTYLINE 25 MG TAB PO SCH (20:54)
[2016-12-03] MEDS: CEPASTAT LOZENGE MT PRN (00:25)
[2016-12-03] MEDS: HYDROmorphONE 2 MG/ML SYG IV PRN ×2 (02:04→17:13)
[2016-12-03] MEDS: PANTOPRAZOLE (EC) 40 MG TAB PO SCH (06:13)
[2016-12-03] MEDS: M PROGEST ACET XX SCH ×2 (08:00→16:00)
[2016-12-03] MEDS: ESTROGEN CON XX SCH ×2 (08:00→16:00)
[2016-12-03 09:24] VITALS: BP 146/85; RESP 18
[2016-12-03] MEDS: SPIRONOLACTONE 25 MG TAB PO SCH (10:26)
[2016-12-03] MEDS: LISINOPRIL 20 MG TAB PO SCH (10:27)
[2016-12-03] MEDS: HYDROCHLOROTHIAZIDE 12.5 MG CAP PO SCH (10:27)
[2016-12-03] MEDS: DEXAMETHASONE 2 MG TAB PO SCH (10:27)
[2016-12-03] MEDS: GABAPENTIN 300 MG CAP PO SCH ×2 (10:28→13:53)
[2016-12-03] MEDS: DEXTROSE 5%-LR 1,000 ML IV SCH (12:50)
[2016-12-03] MEDS: POLYETHYLENE GLYCOL 17 GM PACKET PO PRN (13:55)
[2016-12-03] MEDS: ONDANSETRON 4 MG INJ IV PRN (17:12)
[2016-12-03] MEDS: traMADol 50 MG TAB PO PRN (19:33)
--- NOTE | 2016-12-05 10:46 | SP ---
DATE OF PROCEDURE: 12/03/2016 ADMITTING DIAGNOSIS: C4 to C5, C5 to C6 spondylosis with cord compression. DISCHARGE DIAGNOSIS: Status post C4 to C5, C5 to C6 partial vertebrectomy with diskectomy, interbod y fusion and anterior plating. HOSPITAL COURSE: The patient is a 55-year-old female who was treated on an outpatient basis for C4 to C5, C5 to C6 spondylosis with cord compression. Epidural injections were initiated. Conservativ e management was initiated, but unfortunately patient failed outpatient treatment. The patient was admitted to the hospital. preop was performed has been cleared by her primary physician. Sta rted on IV antibiotics, started on IV steroids. Surgical intervention in the form of C4 to C5, C5 t o C6 partial vertebrectomy with diskectomy with interbody fusion and anterior plating was performed. The patient was admitted to medical/surgical floor postop without any complications. IV antibioti cs were continued. IV Decadron was continued. The patient was started slowly on a soft diet and th en advanced as tolerated. Physical therapy, occupational therapy have seen the patient, evaluated. The patient was able to get up, move, walk, able to move upper and lower extremities equally. Sens ation was intact. No deficit noted. Repeat MRI of the cervical spine showed good decompression of the cervical spine. The patient was stabilized and cleared for discharge with outpatient followup i n 1 week after discharge. Instructions were given to the patient. She has pain medication at home. Dictated By: SCOUT ESPINOSA for FLORA SHAW/OWEN Conf#: [id number] DID#: [id number]
--- NOTE | 2016-12-09 21:52 | DS ---
DATE OF ADMISSION: 11/29/2016 DATE OF DISCHARGE: 12/03/2016 FINAL DIAGNOSES: 1. Cervical spondylosis with disk herniation and early cord compression, status post diskectomy, pa rtial vertebrectomy at C4, C5, and C6 with interbody fusion and plating. 2. Hypertension. 3. Chronic kidney disease, stage II. 4. Obesity. 5. Fibromyalgia. BRIEF HISTORY: The patient is a 55-year-old female with past medical history positive for hypertens ion, chronic kidney disease, fibromyalgia, and obesity. The patient was diagnosed with cervical spo ndylosis and disk herniation in C4-C5 and C5-C6. The patient failed conservative management with ep idural injections and physical therapy and she was evaluated by Dr. Macias. The patient underwent an MRI, which showed cervical spondylosis with disk herniation and early cord compression. The ishaan ent was brought to the hospital and underwent diskectomy with partial vertebrectomy at C4, C5, C6 wi th interbody fusion and plating. Postoperatively, the patient experienced some significant pain. T he patient was admitted for further evaluation and management. HOSPITAL COURSE: The patient received postoperative antibiotics. The patient continued in a soft c ervical collar. The patient was given Zofran for nausea and was given tramadol and Dilaudid for david n. The patient was also continued on Decadron. The patient started physical therapy and slowly pro gressed. The patient had significant pain. The patient's condition gradually improved and patient had some progress with physical therapy. The patient's condition improved and patient's pain is wel l controlled. The patient was discharged home. Case management arranged delivery of a front-wheele d walker and patient was discharged home. CONDITION ON DISCHARGE: Hemodynamically stable. ACTIVITY: As patient tolerates. DISCHARGE DIET: A 2 g sodium, low fat, low cholesterol diet. DISCHARGE MEDICATIONS: The patient is to continue on home medications: 1. Amitriptyline. 2. Atorvastatin. 3. Cyclobenzaprine. 4. Gabapentin. 5. Lisinopril. 6. Hydrochlorothiazide. 7. Omeprazole. 8. Aldactone. 9. Tramadol. FOLLOWUP: The patient is instructed to follow up with Dr. Macias in postoperative appointment in 1 week. Interdisciplinary plan of care was established for this patient. Plan of care was discussed with Dr Livier De Dios. Dictated By: BIGG BLAKE QUALITY ASSURANCE SPECIALIST for DARIUS DE DIOS MD SR/NTS Conf#: [id number] DID#: [id number] CC: FLORA MACIAS MD;*EndCC*
--- NOTE | 2016-12-12 11:15 | OPR ---
DATE OF OPERATION: 11/29/2016 PREOPERATIVE DIAGNOSIS: C4-C5, C5-6 severe cervical spondylosis with cord compression and cervical myelopathy and quadriparesis. POSTOPERATIVE DIAGNOSIS: C4-C5, C5-6 severe cervical spondylosis with cord compression and cervical myelopathy and quadripare sis. PROCEDURE: 1. C4 partial vertebrectomy, anterior approach, CPT 64716. 2. C5 and C6 additional 2 level partial vertebrectomy, anterior approach, CPT 71006 x2. 3. C4-C5 interbody arthrodesis, CPT 61442. 4. C5 and C6, interbody arthrodesis, CPT 21364. 5. C4 to C5 to C6 anterior cervical instrumentation, CPT 71248. 6. C4-C5 and C5-C6 placement of anterior interbody graft, CPT 17095 x2. SURGEON FOR THE OPERATION: Flora Macias MD AUTOMOTIVE BRAKE SPECIALIST: FRANCISCA Williamson COMPLICATIONS OF OPERATION: None. ANESTHESIA: General endotracheal. ESTIMATED BLOOD LOSS: Less than 100. Needle counts and sponge counts were correct. SPECIMEN: Multiple fragments of the disk and the partial vertebral body was sent to pathology. INDICATIONS FOR OPERATION: Patient is well known to me. The patient has been seen in my office on multiple occasions. The patient is 55, has been complaining of neck pain, shoulder pain, arm pain, radiation of pain to bilateral upper extremities, has weakness in bilateral upper extremities. She is unable to walk, unable to do her normal daily activities and we will proceed with cervical partia l vertebrectomy, anterior approach with interbody fusion and instrumentation at C4-C5, C5-C6 level. Risks and benefits of the operation including anesthesia, infection, bleeding, permanent neurologic al injury and were explained to the patient. Patient agreed to proceed with operation and sign ed the consent. PROCEDURE: The patient was placed in supine position, general endotracheal anesthesia was obtained. All the areas were padded. The neck was somewhat extended position. Timeout was called. The incis ion was made in the left anterior neck after the skin was infiltrated with lidocaine with epinephrin e solution. After the skin was prepped and draped in normal sterile fashion. Incision was carried to pass platysma and subplatysmal dissections of the anterior cervical fascia. Retractors were placed under the longus colli muscles laterally, medially, superiorly and inferiorly . Following this, diskectomy was carried out at C5-C6 and C4-[address] the posterior long itudinal ligament. The inferior aspect of C4, superior aspect of C5, inferior aspect of C5 and supe rior aspects of C6 was removed with high-speed Midas Rashaad drill approximately 3 mm, all the other char tebral bodies were removed superiorly and inferiorly to remove completely all the osteophyte in the form of partial vertebrectomy. The posterior longitudinal ligament was opened with a curette and fo llowing that was removed completely with 3-0 Kerrison punches with medial joint of Luschka being rem grodo at each level on both sides of midline, completely compressing the spinal canal. Following this, the interbody fusion was started at C4-5 and C5-6. I utilized advanced ACF ____, a t otal of 2 of them were used. They were 9 mm in height. They were packed with demineralized bone ma trix and was tapped in place at the level of C4-5 and C5-C6. Following this arthrodesis at these 2 levels, I placed an anterior cervical plate Vectra-T plate that was affixed to the cervical spine. This was a 32 mm plate, I utilized a ____ to place the 6 screws that were 4.0 x 14 x 4.5 x 14, total of 6 screws were placed. Following this, the area was irrigated with bacitracin saline solution. At this time, I started the closure part of the operation. The wound was irrigated with bacitracin saline solution. The closu re was done with 2-0 Vicryl for the platysma, 4-0 nylon in a subcuticular fashion for the skin with Steri-Strips for the skin. Patient tolerated the procedure well, spinal monitoring showed improveme nt of signal. The patient was taken to postanesthesia recovery in stable condition. Dictated By: FLORA PEGUERO/OWEN Conf#: [id number] DID#: [id number]
== END 2016-12-03 19:45 | disposition home or self-care (01) | DRG 472 ==
LOC: REC 10:03 → EDSTATUS 13:00 → MS1 18:45
PROVIDERS: ADMIT Neurological Surgery; ATTEND Neurological Surgery
PROC: 0RB30ZZ Excision of Cervical Vertebral Disc, Open Approach (ICD-10-PCS; 2016-11-29)
PROC: 0RG20K0 Fusion of 2 or more Cervical Vertebral Joints with Nonautologous Tissue Substitute, Anterior Approach, Anterior Column, Open Approach (ICD-10-PCS; principal; 2016-11-29 12:00)
DX: M47.12 Other spondylosis with myelopathy, cervical region (principal); M50.021 Cervical disc disorder at C4-C5 level with myelopathy; I12.9 Hypertensive chronic kidney disease with stage 1 through stage 4 chronic kidney disease, or unspecified chronic kidney disease; N18.2 Chronic kidney disease, stage 2 (mild); Z68.33 Body mass index [BMI] 33.0-33.9, adult; M79.7 Fibromyalgia; E66.9 Obesity, unspecified; Z90.5 Acquired absence of kidney
CPT/HCPCS: 72050; 72141; 80048; 85025; 86850; 86900; 86901; 97116; 97162; 97165; 97530; J1940; C1713; J0330; J0360; J0690; J1100; J1170; J2250; J2370; J2405; J2710; J3010; J7121